=== PATIENT | female | born 1940 | race Caucasian/White ===

== ENCOUNTER → 2018-05-22 07:08 | Outpatient (CLI) | payer MEDICARE, SELFPAY ==
[2018-05-22 10:12] LABS: BUN Creatinine Ratio 25.6 (6-22); Blood Urea Nitrogen 23 mg/dL (7-17); Calcium 9.1 mg/dL (8.4-10.2); Carbon Dioxide 31 mmol/L (22-32); Chloride 104 mmol/L (98-107); Estimated Glomerular Filt Rate > 60.0 mL/min (>60); Glucose 91 mg/dL (80-110); HEMOLYSIS < 15 (0-50); Potassium 4.2 mmol/L (3.4-5.1); Sodium 142 mmol/L (137-145)
[2018-05-22 11:02] LABS: TSH w/ Reflex to FT4 0.59 uIU/mL (0.47-4.68)
== END ==
PROVIDERS: Family Provider Naturopath; PCP Internal Medicine; Visit Provider Internal Medicine
DX: E03.9 Hypothyroidism, unspecified (principal); I10 Essential (primary) hypertension
CPT/HCPCS: 36415; 80048; 84443

== ENCOUNTER 2018-08-20 17:58 | Emergency (ER) | payer MEDICARE, SELFPAY ==
[2018-08-20 18:05] VITALS: BP 180/81; PULSE 67; RESP 16; TEMP 36.4; O2SAT 97
[2018-08-20 18:55] LABS: Bacteria Urine None Seen
[2018-08-20 18:57] LABS: Appearance Urine UA CLEAR; Bilirubin Urine UA NEGATIVE (NEGATIVE); Color Urine UA YELLOW; Glucose Urine UA NEGATIVE (Normal); Ketones Urine UA NEGATIVE (NEGATIVE); Leukocyte Esterase Urine UA NEGATIVE (NEGATIVE); Nitrite Urine UA NEGATIVE (Negative); Occult Blood Urine UA NEGATIVE (Negative); Protein Urine UA NEGATIVE (Negative); Urobilinogen Urine UA 0.2 E.U./dL (0.2); pH Urine UA 6.5 (4.5-8.0)
[2018-08-20 19:10] LABS: Culture Indicated Urine Cult Not Indicated; RBC Urine 0-1/HPF (0-5/HPF); Squamous Epithelial Cell Urine 0-1 /HPF; Urine Comments Microscopic Normal; WBC Urine 0-1/HPF (0-5/HPF)
[2018-08-20 20:54] VITALS: BP 161/78; PULSE 62; RESP 14; O2SAT 97
--- NOTE | 2018-08-20 20:55 | ED_ITS ---
HPI - Female Genitourinary <DEEDEE Tate- - Last Filed: 08/20/18 22:39> General Chief complaint: Urogenital-Female Stated complaint: UNABLE TO URINATE Time Seen by Provider: 08/20/18 20:22 Source: patient Mode of arrival: ambulatory Limitations: no limitations History of Present Illness HPI Narrative: patient is a 77-year-old female who presents with chief complaint of dribbling urine. she feels like she is not urinating enough today and that she is retaining in her bladder. She complains of pelvic pressure. She denies any fevers, nausea, vomiting, diarrhea, flank pain, chest pain, shortness of breath. She is concerned that she has urinary tract infection. She denies any vaginal itching or irritation. She feels like Her genitalia are swollen. of note she does states she was supposed to be prepping for a colonoscopy that is tomorrow morning. Related Data Allergies Allergy/AdvReac Type Severity Reaction Status Date / Time iodine [IODINE] Allergy Severe hives Unverified 01/30/18 12:01 clarithromycin Allergy Mild nausea Unverified 01/30/18 12:01 [CLARITHROMYCIN] ciprofloxacin [CIPROFLOXACIN] Allergy Unknown Unverified 01/30/18 12:01 codeine [CODEINE] Allergy Unknown Unverified 01/30/18 12:01 proparacaine [From OPHTHAINE] Allergy Unknown Unverified 01/30/18 12:01 Sulfa (Sulfonamide Allergy Unknown Unverified 01/30/18 12:01 Antibiotics) [SULFA (SULFONAMIDE ANTIBIOTICS)] Review of Systems <[facility] - Last Filed: 08/20/18 22:39> Review of Systems GENERAL: Denies chills, fatigue, malaise, fever, sweats. HEENT: Denies sinus pain, ear pain, sore throat, difficulty swallowing, dizziness. RESPIRATORY: Denies dyspnea, cough, wheezing, hemoptysis, sputum. CARDIOVASCULAR: Denies chest pain, palpitations, orthopnea, edema, GASTROINTESTINAL: see HPI : see HPI MUSCULOSKELETAL: denies weakness, joint pain, or bony pain SKIN: Denies rash, skin lesions, or other NEUROLOGIC: Denies weakness, headache, numbness, change in speech, confusion, seizures, incoordination. PSYCHIATRIC: No concerning psychosocial issues. 12 point review of systems is negative except for those stated above Exam <AJ Tate - Last Filed: 08/20/18 22:39> Narrative Exam Narrative: GENERAL: This is a well-nourished, well-developed patient, in No acute distress HEAD: Atraumatic. Normocephalic. No temporal or scalp tenderness. EYES: Pupils equal round and reactive. Extraocular motions intact. No scleral icterus. No injection or drainage. ENT: Nose without bleeding, purulent drainage or septal hematoma. Throat without erythema, tonsillar hypertrophy or exudate. Uvula midline. Airway patent. NECK: Trachea midline. No JVD or lymphadenopathy. Supple, nontender, no meningeal signs. CARDIOVASCULAR: Regular rate and rhythm RESPIRATORY: Clear to auscultation. Breath sounds equal bilaterally. No wheezes , rales, or rhonchi. GASTROINTESTINAL: Abdomen soft, diffusely tender to palpation, nondistended. No hepato-splenomegaly, or palpable masses. No guarding. no pulsatile mass. Active bowel sounds all 4 quadrants. EXTREMITIES: No clubbing, cyanosis, or edema. No joint tenderness, effusion, or edema noted. BACK: Nontender without deformity or crepitance. No flank tenderness. NEURO: AOx3. SKIN: No rash or erythema. Initial Vital Signs Initial Vital Signs: Vital Signs Temperature 97.5 F L 08/20/18 18:05 Pulse Rate 67 08/20/18 18:05 Respiratory Rate 16 08/20/18 18:05 Blood Pressure 180/81 H 08/20/18 18:05 Pulse Oximetry 97 08/20/18 18:05 <Lottie Longo DO - Last Filed: 08/21/18 06:52> Initial Vital Signs Initial Vital Signs: Vital Signs Temperature 97.5 F L 08/20/18 18:05 Pulse Rate 67 08/20/18 18:05 Respiratory Rate 16 08/20/18 18:05 Blood Pressure 180/81 H 08/20/18 18:05 Pulse Oximetry 97 08/20/18 18:05 Course <AJ Tate - Last Filed: 08/20/18 22:39> Orders Ordered: ED Orders 08/20/18 18:30 Urinalysis and Microscopic Stat Vital Signs - 8 hr 08/20/18 18:05 08/20/18 20:54 08/20/18 21:00 Temperature 97.5 F L Pulse Rate 67 62 66 Respiratory Rate 16 14 18 Blood Pressure 180/81 H 161/78 H Blood Pressure [Right Arm] 161/78 H Pulse Oximetry 97 97 <Lottie Longo DO - Last Filed: 08/21/18 06:52> Orders Ordered: ED Orders 08/20/18 18:30 Urinalysis and Microscopic Stat Vital Signs - 8 hr 08/20/18 18:05 08/20/18 20:54 08/20/18 21:00 Temperature 97.5 F L Pulse Rate 67 62 66 Respiratory Rate 16 14 18 Blood Pressure 180/81 H 161/78 H Blood Pressure [Right Arm] 161/78 H Pulse Oximetry 97 97 MDM - Female Genitourinary <DEEDEE Tate-BC - Last Filed: 08/20/18 22:39> Lab Data Lab Results 08/20/18 Range/Units 18:30 Urine Color Yellow Urine Appearance Clear Urine pH 6.5 (4.5-8.0) Ur Specific Laughlin 1.010 (1.000-1.035) Urine Protein Negative (Negative) Urine Glucose (UA) Negative (Normal) g/dL Urine Ketones Negative (NEGATIVE) Urine Occult Blood Negative (Negative) Urine Nitrate Negative (Negative) Urine Bilirubin Negative (NEGATIVE) Urine Urobilinogen 0.2 (0.2) E.U./dL Ur Leukocyte Esterase Negative (NEGATIVE) Urine RBC 0-1/hpf (0-5/HPF) Urine WBC 0-1/hpf (0-5/HPF) Ur Squamous Epith Cells 0-1 /hpf Urine Bacteria None seen (None) Ur Culture Indicated? Cult not indicated Micro UA Comment Microscopic normal MDM Narrative Medical decision making narrative: patient is a 77-year-old female presents with urine dribbling and concern for urinary retention. Her bladder scan showed 57 cc and her urinalysis is clear. I discussed at length with her possible further workup including blood work, etc. She did complain of slight vaginal discharge, so I did offer a pelvic exam. She states she would prefer to follow up with her primary care provider and that she feels much better knowing that she has not too much or bladder and a clean UA. I discussed at length return precautions. Patient states she will come back to the ED if needed and follow up with her primary care provider. <Lottie Longo DO - Last Filed: 08/21/18 06:52> Lab Data Lab Results 08/20/18 Range/Units 18:30 Urine Color Yellow Urine Appearance Clear Urine pH 6.5 (4.5-8.0) Ur Specific Laughlin 1.010 (1.000-1.035) Urine Protein Negative (Negative) Urine Glucose (UA) Negative (Normal) g/dL Urine Ketones Negative (NEGATIVE) Urine Occult Blood Negative (Negative) Urine Nitrate Negative (Negative) Urine Bilirubin Negative (NEGATIVE) Urine Urobilinogen 0.2 (0.2) E.U./dL Ur Leukocyte Esterase Negative (NEGATIVE) Urine RBC 0-1/hpf (0-5/HPF) Urine WBC 0-1/hpf (0-5/HPF) Ur Squamous Epith Cells 0-1 /hpf Urine Bacteria None seen (None) Ur Culture Indicated? Cult not indicated Micro UA Comment Microscopic normal Discharge Plan Departure Patient Disposition: Home Clinical Impression: Urinary incontinence Discharge Date/Time: 08/20/18 21:01 Interventions: ED Discharge Assessment Last Done: 08/20/18 21:00 Instructions: DI for Urinary Incontinence Activity Restrictions/Additional Instructions: Your urine did not have any signs of infection in her bladder was not overly full in the emergency department. Please follow-up with primary care provider as we discussed. Please remember that because you chose to go home rather than pursue further workup, we might be missing a diagnosis. Please follow-up with primary care come back to the emergency department if needed. Referrals: Rylie Sanders MD [Primary Care Provider] - <Lottie Longo DO - Last Filed: 08/21/18 06:52> Cosign ED Attending Valature Attestation: I was immediately available in the department for consultation. Documentation has been reviewed. I agree with assessment and plan.
[2018-08-20 21:00] VITALS: BP 161/78; PULSE 66; RESP 18
== END 2018-08-20 21:01 | disposition home or self-care (01) ==
PROVIDERS: Emergency Medicine; Emergency Provider Nurse Practitioner Family; Family Provider Naturopath; PCP Internal Medicine
DX: R32 Unspecified urinary incontinence (principal)
CPT/HCPCS: 51798; 81001; 99283

== ENCOUNTER 2018-08-21 09:19 | Day surgery (SDC) | payer MEDICARE, SELFPAY ==
--- NOTE | 2018-08-21 | PATH_ITS ---
[facility] Accession Number: [id number] . 01 Material submitted: . PART A: GASTRIC BIOPSY PART B: ESOPHAGEAL BIOPSY PART C: TRANSVERSE COLON POLYPS X3 . 02 Diagnosis: A. Gastric Biopsies: Mild chronic gastritis involving fundic mucosa with focal area of mucosal scarring consistent with previous mucosal injury. Fragments of antral mucosa with changes consistent with reactive gastropathy. All fragments negative for evidence of Helicobacter on H/E stain. All fragments negative for intestinal metaplasia. All fragments negative for dysplasia and malignancy. . B. Esophageal Biopsies: Fragments of squamous epithelium, negative for significant atypia. No glandular epithelium identified. Negative for intraepithelial eosinophils. . C. 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 . BFI08/22/2018 . 02 Electronically signed: . Monty Shen MD, Pathologist NPI- [id number] . 01 Gross description: . Received three formalin-filled containers each labeled with the patient's name. . A. In a container labeled gastric are three 0.1 to 0.2 cm portions of tissue. Entirely submitted in cassette A. B. In a container labeled esophageal are four less than 0.1 cm to 0.2 cm portions of tissue. Entirely submitted in cassette B. C. In a container labeled transverse col polyps x3 are three 0.1 to 0.6 cm portions of tissue. Entirely submitted in cassette C. ([facility] [place]:[id number]) /[facility] . 02 Pathologist provided ICD-10: D12.3 . 02 CPT . 969383, 542145, 150837 Specimen Comment: A duplicate report has been generated due to demographic updates. Performed at: [address] [facility] [address], [place], [place] [id number] MD Jonathan Still MD Phone: [phone] Performed at: 02 [facility] [id number] [place] [id number] MD Antelmo Max MD Phone: [phone]
[2018-08-21 09:38] VITALS: BP 134/71; PULSE 72; RESP 16; TEMP 36.2; O2SAT 95; BMI 33.4
--- NOTE | 2018-08-21 10:06 | PM.HP.1 ---
History of Present Illness Date Patient Seen: 08/21/18 Chief complaint: colonoscopy egd [id number] Narrative: 77-year-old female with the history of GERD and colon polyps who was seen in our office on 07/17/2018. Please refer to that note for further details. The patient is here for upper endoscopy and colonoscopy for GERD/esophageal dysphagia, globus sensation and polyp surveillance respectively Patient History Surgical History History of cataract removal with insertion of prosthetic lens History of cataract removal with insertion of prosthetic lens History of thyroidectomy Status post bunionectomy Status post tonsillectomy and adenoidectomy Status post tubal ligation Status post vaginal hysterectomy Family & Social History Social History: household members spouse Meds Allergies Allergy/AdvReac Type Severity Reaction Status Date / Time iodine [IODINE] Allergy Severe hives Unverified 01/30/18 12:01 clarithromycin Allergy Mild nausea Unverified 01/30/18 12:01 [CLARITHROMYCIN] ciprofloxacin [CIPROFLOXACIN] Allergy Unknown Unverified 01/30/18 12:01 codeine [CODEINE] Allergy Unknown Unverified 01/30/18 12:01 proparacaine [From OPHTHAINE] Allergy Unknown Unverified 01/30/18 12:01 Sulfa (Sulfonamide Allergy Unknown Unverified 01/30/18 12:01 Antibiotics) [SULFA (SULFONAMIDE ANTIBIOTICS)] Review of Systems Review of Systems All systems reviewed & are unremarkable except as noted in HPI and below Exam Vital Signs (past 8 hours): - 08/21/18 09:38 Temperature 97.2 F L Pulse Rate 72 Respiratory Rate 16 Blood Pressure 134/71 Pulse Oximetry 95 Oxygen Delivery Method Room Air Narrative Exam Narrative: General: Patient is obese, not in apparent distress Cardiovascular: Regular rate and rhythm, no murmurs, rubs, or gallops; no evidence of edema; no palpable abdominal aortic aneurysm Gastrointestinal: Normoactive bowel sounds, soft, nontender, nondistended, no rebound tenderness, no hepatosplenomegaly, no evidence of hernia Assessment & Plan Plan: Assessment/Plan Narrative: 77-year-old female with history of GERD and esophageal dysphagia, globus sensation here for upper endoscopy further evaluate for luminal pathology. The patient is also due for polyp surveillance. Last colonoscopy performed 2012 at [facility] with no evidence of adenomatous polyps. Her colonoscopy prior to that showed colon polyps. The report is not available to me Regarding the procedure(s), the risks and potential complications, benefits, and alternatives (including not doing the procedure) were discussed with the patient. The risks include but are not limited to bleeding, splenic injury, infection, perforation which may require surgical intervention, missed lesions, and adverse reactions to sedative medicines. After a question and answer period, the patient agreed to proceed with the procedure(s) and gives informed consent.
--- NOTE | 2018-08-21 10:38 | PM.OP.ENDO ---
Operative Date/Time/Diagnoses Date of procedure: 08/21/18 Procedure Notes Procedure in detail: Surgeon: Maynor Piedra MD Procedure: Esophagogastroduodenoscopy with biopsy and colonoscopy with polypectomy Preoperative diagnosis: GERD, esophageal dysphagia, globus sensation; colon polyp surveillance Postoperative diagnosis: Normal esophagus status post biopsy, antral gastritis status post biopsy, duodenal erythema; 3 colon polyp status post polypectomy, grade 2 internal hemorrhoids Medications: Conscious sedation using 4 mg IV of Midazolam and 50 mcg IV of Fentanyl for EGD. 4 mg IV of Midazolam and 100 mcg IV of Fentanyl (total for both procedures) Preanesthesia Assessment An H and P was performed/updated and the Px?s ASA class is 2. The procedure was discussed in detail with the patient. The potential risks and complications including infection, bleeding, missed lesions, perforation, need for surgery in case of perforation, prolonged hospital stay, and were explained. A brief question and answer period was allotted and once all questions were answered, informed consent was obtained. The patient was brought back to the procedure room and placed on standard monitoring. The patient?s vital signs were monitored continuously throughout the entire procedure. Prior to starting, a timeout was performed to confirm the patient?s identity, allergies, medications, and procedure. Procedure in detail The patient was placed in left lateral decubitus position and a bite block was inserted. The tip of the upper endoscope was placed into the mouth and advanced without difficulty under direct visualization into the esophagus. Esophagus: The esophageal mucosa all the way to the GE junction appeared normal. Random biopsies were taken from the mid and proximal esophagus to rule out eosinophilic esophagitis Stomach: There was note of small erosions in the antrum. Biopsies were taken rule out H pylori; retroflexion revealed no lesions in the cardia or fundus Duodenum: Duodenal bulb erythema otherwise unremarkable duodenum to the 2nd portion After the upper endoscopy, preparations were made for the colonoscopy. Once adequate sedation was obtained a KATELYNN was performed. The digital rectal examination did not reveal any palpable lesions. The tip of the colonoscope was placed in the anal canal and advanced without difficulty all the way to the cecum which was identified by the appendiceal orifice and the ileocecal valve. The terminal ileum was intubated to a distance of 5 cm from the ileocecal valve and the mucosa appeared normal. The colonoscope was then brought back to the cecum and careful examination of all flanagan of the colon was performed with irrigation of any residual stool. In the transverse colon, there was note of 2 polyps measuring 2 mm which were removed by means of cold Jumbo forceps. Resection and retrieval were complete with minimal bleeding. In the distal transverse colon, there was note of a 10 mm sessile polyp which was removed by means of a cold snare. Resection and retrieval were complete with minimal bleeding. The remainder of the colon showed no mucosal abnormalities. Retroflexion was performed in the rectum which revealed grade 2 internal hemorrhoids. The patient tolerated the procedure well and will be brought back to the recovery area to be discharged once criteria are met. The prep was judged to be good/excellent and adequate to identify polyps less than 5 mm. The withdrawal time was 9 min. The total physician intraservice time was 30 min. Complications There were no complications and estimated blood loss was minimal. Recommendations Resume previous diet Continue outpatient medications Follow-up pathology results Repeat colonoscopy in 3 or 5 years if polyps removed are adenomatous. If colon polyps are NOT adenomatous no further surveillance is recommended. Follow-up at our office with Dr. Wu if with persistent symptoms An emergency contact number was given to the patient for any complications related to the procedure
[2018-08-21] MEDS: MIDAZOLAM 5 MG/5 ML VIAL IV (11:10)
[2018-08-21] MEDS: fentaNYL 250 MCG/5 ML INJ IV (11:11)
--- NOTE | 2018-08-21 11:29 | P.DS_ITS ---
History of Present Illness Chief complaint: colonoscopy egd [id number] Narrative: 77-year-old female with the history of GERD and colon polyps who was seen in our office on 07/17/2018. Please refer to that note for further details. The patient is here for upper endoscopy and colonoscopy for GERD/ esophageal dysphagia, globus sensation and polyp surveillance respectively Discharge Providers Primary care physician: Rylie Sanders MD Discharge provider: Maynor Piedra MD Discharge Date: 08/21/18 Exam Vital Signs (past 8 hours): - 08/21/18 09:38 Temperature 97.2 F L Pulse Rate 72 Respiratory Rate 16 Blood Pressure 134/71 Pulse Oximetry 95 Oxygen Delivery Method Room Air Narrative Exam Narrative: General: Patient is obese, not in apparent distress Cardiovascular: Regular rate and rhythm, no murmurs, rubs, or gallops; no evidence of edema; no palpable abdominal aortic aneurysm Gastrointestinal: Normoactive bowel sounds, soft, nontender, nondistended, no rebound tenderness, no hepatosplenomegaly, no evidence of hernia Discharge Plan Discharge Plan Patient Disposition: Home Discharge Med Rec/Prescriptions Discharge Orders: Discharge (Order); Ordered 08/21/18 Ordered By: Maynor Piedra Provider Discharge Instructions Diet: Diet as Tolerated Visit Report/Discharge Packet Stand Alone Forms: Surgery Discharge Discharge Data Primary Care Provider: Rylie Sanders Attending Provider: Maynor Piedra
[2018-08-21 11:30] VITALS: BP 120/62; PULSE 71; RESP 20; TEMP 36.3; O2SAT 98
== END 2018-08-21 11:45 | disposition home or self-care (01) ==
PROVIDERS: Family Provider Naturopath; PCP Internal Medicine; Visit Provider Internal Medicine Gastroenterology
PROC: 0DJ08ZZ Inspection of Upper Intestinal Tract, Via Natural or Artificial Opening Endoscopic (ICD-10-PCS; CPT 43235; principal; 2018-08-21 10:30)
PROC: 0DJD8ZZ Inspection of Lower Intestinal Tract, Via Natural or Artificial Opening Endoscopic (ICD-10-PCS; CPT 45378; 2018-08-21 10:30)
DX: Z86.010 Personal history of colon polyps (principal); K21.9 Gastro-esophageal reflux disease without esophagitis; R13.14 Dysphagia, pharyngoesophageal phase; K58.2 Mixed irritable bowel syndrome; K64.1 Second degree hemorrhoids; D12.3 Benign neoplasm of transverse colon
CPT/HCPCS: 45385; 45380; 43239; 88305; J2250; J3010

== ENCOUNTER → 2018-12-02 07:49 | Outpatient (CLI) | payer MEDICARE, SELFPAY ==
--- NOTE | 2018-12-02 | DI.US.S_ITS ---
PROCEDURE: US ABDOMEN COMPLETE INDICATIONS: RIGHT UPPER QUADRANT PAIN TECHNIQUE: Real-time scanning was performed of the abdominal and retroperitoneal organs, with image documentation. COMPARISON: [facility], US, RENAL OR RETROPERITONEAL LIMIT, 11/01/2015, 13:08. FINDINGS: Liver: At the junction of the right and left lobes, there is an echogenic ill-defined area measuring 3.7 x 2.5 x 3.2 cm, which is indeterminate. No associated vascularity is seen. There are multiple right hepatic cyst measuring up to 1.0 cm Gallbladder: There is diffuse gallbladder wall thickening measuring up to 4 mm. No definite gallbladder calculus seen. Positive sonographic Ureña sign Biliary ducts: Intrahepatic bile ducts are non-dilated. Extrahepatic bile duct caliber measures 3-4 mm. Normal is 6-7 mm or less in diameter, or 10 mm or less post-cholecystectomy. Pancreas: Visualized portions of the pancreas are sonographically normal. Spleen: Spleen is normal in size and homogeneous in echotexture. There are punctate splenic calcifications presumably from prior granulomatous disease. Kidneys: Kidneys are normal in size and echotexture. Right kidney measures 8.4 cm long; left kidney measures 12.7 cm long. No hydronephrosis or nephrolithiasis. No solid masses. An echogenic focus in the right kidney measuring 7 mm, potentially small angiomyolipoma although technically nonspecific. Multiple left renal cysts measuring up to 5.8 x 5.2 x 5.5 cm. This demonstrate simple appearance. Aorta: Visualized aorta is normal in caliber at less than 3 cm. Iliacs: Obscured by shadowing bowel gas IVC: Intrahepatic inferior vena cava is patent. Miscellaneous: No free abdominal fluid. IMPRESSION: Diffuse gallbladder wall thickening although no definite sonographically visible cholelithiasis. Positive sonographic Ureña sign. Findings raise the possibility of chronic or acalculous cholecystitis. Please correlate clinically and if needed, HIDA scan could be considered Echogenic focus within the central liver, potentially a hemangioma although nonspecific. Differential includes geographic fatty infiltration. Recommend continued surveillance with 6 month interval ultrasound or further assessment could be performed with liver MRI with and without contrast. Subcentimeter potential small angiomyolipoma involving the right kidney although also technically indeterminate and too small to characterize. Long-term monitoring with ultrasound could be performed to document stability. Large simple appearing left renal cyst. Dictated by: Michael Kumar M.D. on 12/03/2018 at 10:40 Approved by: Michael Kumar M.D. on 12/03/2018 at 10:47
== END ==
PROVIDERS: Family Provider Naturopath; PCP Internal Medicine; Visit Provider Internal Medicine
DX: R10.11 Right upper quadrant pain (principal); N28.1 Cyst of kidney, acquired
CPT/HCPCS: 76700

== ENCOUNTER → 2019-03-07 10:57 | Outpatient (CLI) | payer MEDICARE, SELFPAY ==
--- NOTE | 2019-03-07 | DI.MG.S_ITS ---
BILATERAL DIGITAL SCREENING MAMMOGRAM 3D/2D WITH CAD: 03/07/2019 CLINICAL: Routine screening. Comparison is made to exams dated: 03/06/2018 mammogram, 09/29/2013 mammogram, and 09/27/2012 mammogram - [facility]. The tissue of both breasts is predominantly fatty. Current study was also evaluated with a Computer Aided Detection (CAD) system. No significant masses, calcifications, or other findings are seen in either breast. There has been no significant interval change. IMPRESSION: NEGATIVE There is no mammographic evidence of malignancy. A 1 year screening mammogram is recommended. This exam was interpreted at Station ID: [id number]. NOTE: For mammograms, a report in lay terms will be sent to the patient. Approximately 15% of breast malignancies will not be visualized mammographically. In the management of a palpable breast mass, a negative mammogram must not discourage biopsy of a clinically suspicious lesion. Electronically Signed By: Christine parr/falguni:03/07/2019 12:56:29 copy to: CHARLES DALY letter sent: Normal Exam ACR BI-RADS Category 1: Negative [id number]
== END ==
PROVIDERS: Family Provider Naturopath; PCP Internal Medicine; Visit Provider Internal Medicine
DX: Z12.31 Encounter for screening mammogram for malignant neoplasm of breast (principal)
CPT/HCPCS: 77063; 77067

== ENCOUNTER 2019-05-25 19:32 | Emergency (ER) | payer MEDICARE, SELFPAY ==
[2019-05-25 19:35] VITALS: BP 165/71; PULSE 76; RESP 18; TEMP 36.7; O2SAT 97; BMI 33.5
--- NOTE | 2019-05-25 19:49 | DI.RAD.S_ITS ---
PROCEDURE: XR ACUTE ABDOMEN SERIES INDICATIONS: difficulty with BMs TECHNIQUE: One view chest and two views of the abdomen were acquired. COMPARISON: None. FINDINGS: Surgical changes and devices: None. Chest: Minimal streaky bibasilar opacities likely representing atelectasis. Heart size is normal. No pleural effusions. No pneumoperitoneum. Abdomen: Bowel gas pattern is nonobstructive. Fecal material is seen throughout the colon but most pronounced in the region of the hepatic flexure. No suspicious calcifications. Visualized solid organ contours appear normal. Bones: No suspicious bony lesions. IMPRESSION: 1. Nonobstructive bowel gas pattern. Moderate fecal burden scattered throughout the visualized colon with a large amount noted at the hepatic flexure. 2. Minimal streaky bibasilar opacities more pronounced on the left which are favored to represent atelectasis. Dictated by: Neymar Goodson M.D. on 05/25/2019 at 20:37 Approved by: Neymar Goodson M.D. on 05/25/2019 at 20:39
[2019-05-25 20:02] VITALS: BP 161/74; PULSE 73; O2SAT 97
[2019-05-25 20:02] LABS: Add Manual Diff / Slide Review NO; Basophils Absolute Auto 100 /uL (0-100); Basophils Percent Auto 1.4 % (0-2); Eosinophils Absolute Auto 500 /uL (0-450); Eosinophils Percent Auto 5.7 % (2-4); Hematocrit 39.4 % (36-46); Hemoglobin 13.4 g/dL (12.0-16.0); Lymphocytes Absolute Auto 2200 /uL (1100-4500); Lymphocytes Percent Auto 26.4 % (25-40); Mean Corpuscular Hemoglobin 30.8 PG (26-34); Mean Corpuscular Volume 90.7 fL (80-100); Monocytes Absolute Auto 800 /uL (0-900); Monocytes Percent Auto 9.3 % (3-14); Neutrophils Absolute Auto 4900 /uL (1500-7000); Neutrophils Percent Auto 57.2 % (50-75); Platelet Count 229 X10^3/uL (150-400); Red Blood Cell Count 4.34 X10^6/uL (4.0-5.2); Red Cell Distribution Width 13.6 % (11.6-14.8); White Blood Cell Count 8.5 X10^3/uL (4.5-11.0)
[2019-05-25 20:08] LABS: INR 0.9 (0.9-1.3)
[2019-05-25 20:11] LABS: PTT Partial Thromboplastin Tim 29 SECONDS (26.4-36.2)
[2019-05-25 20:13] LABS: Alanine Aminotransferase 23 IU/L (9-52); Albumin 4.2 g/dL (3.5-5.0); Albumin Globulin Ratio 1.6 (1.0-2.8); Alkaline Phosphatase 32 U/L (38-126); Aspartate Aminotransferase 31 IU/L (14-36); Bilirubin Total 1.1 mg/dL (0.2-1.3); Blood Urea Nitrogen 20 mg/dL (7-17); Calcium 9.1 mg/dL (8.4-10.2); Carbon Dioxide 27 mmol/L (22-32); Chloride 100 mmol/L (98-107); Estimated Glomerular Filt Rate > 60.0 mL/min (>60); Globulin 2.6 g/dL (1.7-4.1); Glucose 103 mg/dL (80-110); HEMOLYSIS 27 (0-50); Lipase 287 U/L (23-300); Sodium 136 mmol/L (137-145); Total Protein 6.8 g/dL (6.3-8.2)
--- NOTE | 2019-05-25 20:52 | DI.CT.S_ITS ---
PROCEDURE: CT ABDOMEN PELVIS W CON INDICATIONS: severe LLQ pain TECHNIQUE: After the administration of intravenous contrast, 5 mm thick sections acquired from the diaphragm to the symphysis. 5 mm coronal and sagittal reformats were acquired. For radiation dose reduction, the following was used: automated exposure control, adjustment of mA and/or kV according to patient size. COMPARISON: None. FINDINGS: Image quality: Excellent. ABDOMEN: Lung bases: Mild bibasilar atelectasis. Heart size is normal. There is a small hiatal hernia with post surgical changes at the gastroesophageal junction. Solid organs: Liver is normal in size and enhancement. Scattered calcified granulomas in the liver and spleen. A few small hepatic hypodensities are too small to accurately characterize and likely represent cysts versus hemangiomas. Gallbladder is unremarkable in appearance. A. Biliary system is non dilated. Pancreas enhances normally. Spleen is normal in size and enhancement. No adrenal nodules. Kidneys demonstrate normal size and enhancement, without hydronephrosis. A partially exophytic 6.5 cm posterior left renal cyst. Peritoneum and bowel: Scant colonic diverticula. There is a short segment of minimal pericolonic inflammatory stranding and minimal circumferential wall thickening involving the proximal sigmoid colon. No diverticula identified in this region. No evidence for free air or organized fluid collection. Remainder the visualized bowel appear normal in thickness and caliber. Moderate amount of fecal material is noted throughout the colon most pronounced in the right upper abdomen and transverse colon. Nodes and vessels: No retroperitoneal or mesenteric adenopathy by size criteria. Aorta and inferior vena cava are normal in size. Miscellaneous: No ventral hernias. PELVIS: Genitourinary: Bladder wall thickness is normal. Small bilateral ovarian/adnexal cysts. Status post hysterectomy. Miscellaneous: No inguinal hernias or adenopathy. Bones: No suspicious bony lesions. No acute vertebral body compression fractures. Multilevel lumbar spondylosis most prominent in the lower lumbar spine. There is grade 1 anterolisthesis of L5 on S1 likely related to moderate facet arthrosis. No pars defects identified. Minimal grade 1 anterolisthesis of L4 and L5. IMPRESSION: 1. Short segment of minimal circumferential bowel wall thickening and pericolonic inflammatory stranding involving the proximal sigmoid colon with minimal hyperemia which may represent inflammatory/infectious colitis versus mild diverticulitis as there are scant colonic diverticula identified in the colon; however, no visible colonic diverticula identified in this region of inflammation. No free air or free fluid. 2. Moderate fecal burden in the colon most pronounced in the right upper abdomen and along the transverse colon. 3. A partially exophytic 6.5 cm posterior left renal cyst. 4. Prior granulomatous disease. 5. Lumbar spondylosis with grade 1 anterolithesis of L5 onS1. Dictated by: Neymar Goodson M.D. on 05/25/2019 at 22:29 Approved by: Neymar Goodson M.D. on 05/25/2019 at 22:55
[2019-05-25] MEDS: methylPREDNISolone 125 MG/2 ML VIAL IV (21:06)
[2019-05-25] MEDS: FAMOTIDINE 20 MG/50 ML PIGGYBACK 200 MG IV (21:06)
--- NOTE | 2019-05-25 21:21 | ED.ABDPAIN ---
HPI - Abdominal Pain General Chief Complaint: Abdominal Pain Stated Complaint: Abdominal Pain Time Seen by Provider: 05/25/19 20:05 Source: patient Mode of arrival: ambulatory Limitations: no limitations History of Present Illness HPI narrative: 78-year-old female nonsmoker with history of hypothyroid presents to the emergency department with a chief complaint of severe lower abdominal pain with nausea and decreased appetite for the past day or 2. Her pain is worse with motion and improves with rest. She is not dizzy nor weak or lightheaded. She denies any dysuria, frequency or urgency. She has had decreased bowel movements for the past few days and would normally go probably twice daily. She denies any dietary change or new medications. She denies any recent international travel MD complaint: abdominal pain Onset (ago): hour(s) Pain Consistency: constant Location: LLQ Severity: moderate Quality: cramping and aching Radiation: none Migration to: no migration Relieving factors: rest Exacerbating factors: movement Associated symptoms: nausea and constipation Related Data Home Medications Medication Instructions Recorded Confirmed thyroid (pork) 65 mg tablet 32.5 mg PO DAILY 02/17/19 02/17/19 Previous Rx's Medication Instructions Recorded amoxicillin-pot clavulanate 1 tab PO BID #28 tab 05/25/19 [Augmentin] hyoscyamine sulfate [Levsin] 0.125 mg PO BID-QID PRN #20 tab 05/25/19 Allergies Allergy/AdvReac Type Severity Reaction Status Date / Time iodine [IODINE] Allergy Severe hives Verified 05/25/19 19:48 clarithromycin Allergy Mild nausea Verified 05/25/19 19:48 [CLARITHROMYCIN] ciprofloxacin [CIPROFLOXACIN] Allergy Unknown Verified 05/25/19 19:48 codeine [CODEINE] Allergy Unknown Verified 05/25/19 19:48 proparacaine [From OPHTHAINE] Allergy Unknown Verified 05/25/19 19:48 Sulfa (Sulfonamide Allergy Unknown Verified 05/25/19 19:48 Antibiotics) [SULFA (SULFONAMIDE ANTIBIOTICS)] Review of Systems Constitutional Denies chills, Denies fever(s), Denies lethargy and Denies weakness Eyes Denies change in vision, Denies eye discharge, Denies irritation and Denies loss of vision ENT Ears, Nose, Mouth, and Throat: Denies change in voice, Denies neck pain and Denies sore throat Cardiovascular Denies chest pain, Denies irregular heart rhythm, Denies lightheadedness, Denies palpitations, Denies dyspnea, Denies dyspnea on exertion and Denies orthopnea Respiratory Denies cough, Denies dyspnea, Denies dyspnea on exertion and Denies wheezing Gastrointestinal Gastrointestinal: Reports abdominal pain, Reports change in bowel habits, Denies diarrhea, Reports nausea and Denies vomiting Genitourinary Denies hematuria, Denies flank pain, Denies urinary incontinence and Denies urinary urgency Musculoskeletal Denies neck pain Integumentary/Breasts Denies pruritus, Denies erythema, Denies rash and Denies wounds Neurologic Denies confusion, Denies loss of vision and Denies weakness Psychiatric Denies anxiety, Denies confusion, Denies depression, Denies homicidal ideation and Denies suicidal ideation Endocrine Denies palpitations Hematologic/Lymphatic Denies easy bruising Allergic/Immunologic Denies wheezing PFSH Medical History Cholecystitis (Acute) Surgical History History of cataract removal with insertion of prosthetic lens History of cataract removal with insertion of prosthetic lens History of thyroidectomy Status post bunionectomy Status post tonsillectomy and adenoidectomy Status post tubal ligation Status post vaginal hysterectomy Family History Brother Age: 77 Cancer Brother Age: 76 Cancer Father Hypertension High cholesterol Mother Hypertension Social History household members: spouse Smoking Status: Former smoker Family History Brother Age: 77 Cancer Brother Age: 76 Cancer Father Hypertension High cholesterol Mother Hypertension Social History household members: spouse Smoking Status: Former smoker Exam Narrative Exam Narrative: GENERAL: Pleasant 78-year-old female appears stated age, obviously uncomfortable and rubbing her lower abdomen HEAD: Atraumatic. Normocephalic. No temporal or scalp tenderness. EYES: Pupils equal round and reactive. Extraocular motions intact. No scleral icterus. No injection or drainage. ENT: Nose without bleeding, purulent drainage or septal hematoma. Throat without erythema, tonsillar hypertrophy or exudate. Uvula midline. Airway patent. NECK: Trachea midline. No JVD or lymphadenopathy. Supple, nontender, no meningeal signs. CARDIOVASCULAR: Regular rate and rhythm without murmurs, gallops, or rubs. RESPIRATORY: Clear to auscultation. Breath sounds equal bilaterally. No wheezes, rales, or rhonchi. GASTROINTESTINAL: Abdomen soft, tender left lower quadrant nondistended. No hepato-splenomegaly, or palpable masses. No guarding. EXTREMITIES: No clubbing, cyanosis, or edema. No joint tenderness, effusion, or edema noted. BACK: Nontender without deformity or crepitance. No flank tenderness. NEURO: AOx3. SKIN: No rash or erythema. Initial Vital Signs Initial Vital Signs: Vital Signs Temperature 98.0 F 05/25/19 19:35 Pulse Rate 76 05/25/19 19:35 Respiratory Rate 18 05/25/19 19:35 Blood Pressure 165/71 H 05/25/19 19:35 Pulse Oximetry 97 05/25/19 19:35 Course Orders Ordered: ED Orders 05/25/19 19:49 XR acute abdomen series Stat 05/25/19 19:50 Complete Blood Count AUTO DIFF Stat Comprehensive Metabolic Panel Stat Lipase Stat Partial Thromboplastin Time Stat Prothrombin Time INR Stat 05/25/19 20:52 CT abdomen pelvis w con Stat Discontinued Medications Diphenhydramine HCl (Benadryl) 12.5 mg IV NOW ONE Stop: 05/25/19 21:02 Last Admin: 05/25/19 22:16 Dose: Not Given Famotidine (Pepcid) 20 mg in 50 mls @ 200 mls/hr IV NOW ONE Stop: 05/25/19 21:15 Last Infusion: 05/25/19 21:25 Dose: 0 mls/hr Admin: 05/25/19 21:06 Dose: 200 mls/hr Methylprednisolone (Solu-Medrol 125 Mg Vial) 125 mg IV NOW ONE Stop: 05/25/19 21:02 Last Admin: 05/25/19 21:06 Dose: 125 mg Vital Signs - 8 hr 05/25/19 20:02 05/25/19 21:50 05/25/19 22:30 Pulse Rate 73 72 64 Blood Pressure [Left Arm] 161/74 H 141/95 H 131/63 Pulse Oximetry 97 97 93 05/25/19 23:00 Pulse Rate 64 Blood Pressure [Left Arm] 140/75 Pulse Oximetry 93 MDM - Abdominal Pain Lab Data Result diagrams: 05/25/19 19:50 05/25/19 19:50 Lab Results 05/25/19 05/25/19 05/25/19 Range/Units 19:50 19:50 19:50 WBC 8.5 (4.5-11.0) X10^3/uL RBC 4.34 (4.0-5.2) X10^6/uL Hgb 13.4 (12.0-16.0) g/dL Hct 39.4 (36-46) % MCV 90.7 (80-100) fL MCH 30.8 (26-34) PG MCHC 34.0 (30-36) % RDW 13.6 (11.6-14.8) % Plt Count 229 (150-400) X10^3/uL Neut % (Auto) 57.2 (50-75) % Lymph % (Auto) 26.4 (25-40) % [place] % (Auto) 9.3 (3-14) % Eos % (Auto) 5.7 H (2-4) % Baso % (Auto) 1.4 (0-2) % Neut # (Auto) 4900 (9093-2452) /uL Lymph # (Auto) 2200 (6944-8837) /uL [place] # (Auto) 800 (0-900) /uL Eos # (Auto) 500 H (0-450) /uL Baso # (Auto) 100 (0-100) /uL PT 10.0 L (10.1-12.7) SECONDS INR 0.9 (0.9-1.3) APTT 29 (26.4-36.2) SECONDS Sodium 136 L (137-145) mmol/L Potassium 4.0 (3.4-5.1) mmol/L Chloride 100 (98-107) mmol/L Carbon Dioxide 27 (22-32) mmol/L BUN 20 H (7-17) mg/dL Creatinine 0.80 (0.52-1.04) mg/dL Estimated GFR > 60.0 (>60) mL/min BUN/Creatinine Ratio 25.0 H (6-22) Glucose 103 (80-110) mg/dL Calcium 9.1 (8.4-10.2) mg/dL Total Bilirubin 1.1 (0.2-1.3) mg/dL AST 31 (14-36) IU/L ALT 23 (9-52) IU/L Alkaline Phosphatase 32 L (38-126) U/L Total Protein 6.8 (6.3-8.2) g/dL Albumin 4.2 (3.5-5.0) g/dL Globulin 2.6 (1.7-4.1) g/dL Albumin/Globulin Ratio 1.6 (1.0-2.8) Lipase 287 (23-300) U/L Point of care testing: Urine Dip Bedside Urine Glucose Negative Bedside Urine Bilirubin - Negative Bedside Urine Ketone - Negative Urine Specific [place] 1.010 Bedside Urine Occult Blood +/- Bedside Urine pH 6.5 Bedside Urine Protein - Negative Bedside Urine Urobilinogen - Negative Bedside Urine Nitrite - Negative Bedside Urine Leukocytes - Negative Esterase Discharge Plan Departure Patient Disposition: Home Clinical Impression: Diverticulitis Discharge Date/Time: 05/25/19 23:30 Interventions: ED Discharge Assessment Last Done: 05/25/19 23:36 Instructions: DI for Diverticulitis Activity Restrictions/Additional Instructions: *You have been diagnosed with [diverticulitis] *What to do: *Take medications as directed *Follow up with your primary care provider in 2-3 days, call for an appointment. Let them know you were seen in the Emergency Department and that we ask that you be seen in follow up *Return to ER if you should have any new, worsening or concerning symptoms 1. Drink plenty of fluids with frequent small sips. 2. For the next 24 hours a clear liquid diet is advised. After that please employ a brat diet which would include bananas, rice, apples, toast. 3. Please take medications as directed. 4. Please follow-up with your doctor in the next 1-2 days. Call the office for an appointment. 5. Please return to the emergency Department for any worsening or persistent symptoms, such as increasing pain or fever. Prescriptions: New hyoscyamine sulfate [Levsin] 0.125 mg tablet 0.125 mg PO BID-QID PRN (Reason: dyspepsia) Qty: 20 RF: 0 amoxicillin-pot clavulanate [Augmentin] 875-125 mg tablet 1 tab PO BID Qty: 28 RF: 0 No Action Nature-Throid 65 mg tablet 32.5 mg PO DAILY RF: 0 Referrals: Rylie Sanders MD [Primary Care Provider] -
[2019-05-25 21:50] VITALS: BP 141/95; PULSE 72; O2SAT 97
[2019-05-25 22:30] VITALS: BP 131/63; PULSE 64; O2SAT 93
[2019-05-25 23:00] VITALS: BP 140/75; PULSE 64; O2SAT 93
== END 2019-05-25 23:30 | disposition home or self-care (01) ==
PROVIDERS: Emergency Provider Emergency Medicine; Family Provider Naturopath; PCP Internal Medicine
DX: K57.92 Diverticulitis of intestine, part unspecified, without perforation or abscess without bleeding (principal)
CPT/HCPCS: 36591; 74022; 74177; 80053; 81003; 83690; 85025; 85610; 85730; 96365; 96375; 99283; 99284; J2930; Q9967

== ENCOUNTER → 2019-07-23 07:10 | Outpatient (CLI) | payer MEDICARE, SELFPAY ==
[2019-07-23 08:23] LABS: Cholesterol 200 mg/dL (140-199); HDL Cholesterol 63 mg/dL (40-60); LDL Cholesterol Calculated 121 mg/dL (<100); Triglycerides 80 mg/dL (35-150)
== END ==
PROVIDERS: PCP Internal Medicine; Visit Provider Internal Medicine
DX: E78.5 Hyperlipidemia, unspecified (principal); E03.9 Hypothyroidism, unspecified
CPT/HCPCS: 36415; 80061; 84443